=== PATIENT | female | born 1955 | race Hispanic/Latino ===

== ENCOUNTER 2017-08-30 12:51 | Day surgery (SDC) | payer BC ==
[2015-09-20 06:41] VITALS: BMI 32.3
[2017-08-30 13:14] VITALS: RESP 18
[2017-08-30] MEDS ORDERED: Propofol 10 mg/ml Inj (20 ML) ONE (14:15)
[2017-08-30] MEDS ORDERED: Midazolam 2 MG/2 ML VIAL ONE (14:16)
--- NOTE | 2017-08-30 15:16 | PCM.SURG1 ---
Surgeon's Initial Post Op Note - Surgeon's Notes Surgeon: Pia Jackson MD [employer] Supervisor: none Type of Anesthesia: General LMA Pre-Operative Diagnosis: Postmenopausel bleeding Operative Findings: submucosal mass, bilateral ostia vialsuzed. myosure device used Post-Operative Diagnosis: same as above, sumbuocsal myoma Operation Performed: Hysteroscopi myoemcotmy, fractionla dilation and ucrrettage Specimen/Specimens Removed: endocervicla currettings, enodmteiral currettins, sumbucoal myoma Estimated Blood Loss: EBL {In ML}: 10 Blood Products Given: N/A Drains Used: No Drains Post-Op Condition: Good Date of Surgery/Procedure: 08/30/17 Time of Surgery/Procedure: 14:00
[2017-08-30] MEDS ORDERED: Lactated Ringer's 500 ML IV ONE (16:00)
[2017-08-30 16:37] VITALS: O2SAT 100
[2017-08-30 17:12] VITALS: BP 120/79; PULSE 62; TEMP 97.8
--- NOTE | 2017-08-31 02:16 | OP ---
PROCEDURE DATE: 08/30/2017 SURGEON: Pia Jackson MD [employer] DIRECTOR OPERATIONS: None. TYPE OF ANESTHESIA: General LMA. PREOPERATIVE DIAGNOSIS: Postmenopausal bleeding. POSTOPERATIVE DIAGNOSES: Postmenopausal bleeding, submucosal myoma. OPERATIVE FINDINGS: Submucosal mass, bilateral ostia visualized, MyoSure device used. OPERATION PERFORMED: Hysteroscopic myomectomy, fractional dilation and curettage. SPECIMEN: Endocervical curettings, endometrial curettings, submucosal myoma. ESTIMATED BLOOD LOSS: 10 mL. BLOOD PRODUCTS: None. COMPLICATIONS: None. DESCRIPTION OF PROCEDURE: The patient was taken to the operating room where she was given general anesthesia. Once it was found to be adequate, she was positioned on the operating table in a dorsal position with legs supported using stirrups. The patient was then prepped and draped in usual sterile fashion. Time-out confirmed correct patient and correct procedure. Bimanual exam was performed with the above-mentioned findings. Tay retractor was placed in the anterior and posterior fornix of the vagina. The cervix was adequately visualized. A single-tooth tenaculum was placed in the anterior lip of the cervix. Endocervical curettings were obtained with Kevorkian curette and sent to pathology on [facility]. Following this, the uterus was then sounded to 7 cm. The cervix was sequentially dilated with Dominik dilator to allow for introduction of a 5 mm hysteroscope under direct visualization using normal saline as a distention media. The MyoSure device was then inserted under direct visualization and the mass was resected. The MyoSure device was then removed. A gentle curettage was done at 360 degrees until gritty texture was noted. Specimen was removed and sent to pathology. All instruments were removed. There was good hemostasis at the tenaculum puncture site. At the end of the procedure, all needles, sponge, and instrument counts were noted and correct x2. The patient tolerated the procedure well and sent to the recovery room in stable condition. Pia Jackson MD
== END 2017-08-30 17:00 | disposition home or self-care (01) ==
LOC: C.SDS 12:51
PROVIDERS: ATTEND Obstetrics & Gynecology
DX: N95.0 Postmenopausal bleeding (principal); D25.0 Submucous leiomyoma of uterus; I10 Essential (primary) hypertension; K22.70 Barrett's esophagus without dysplasia; Z79.899 Other long term (current) drug therapy
CPT/HCPCS: 58120; 58561; J1100; J1885; J2001; J2250; J2405; J2704; J3010; J7120